=== PATIENT | male | born 1965 | race Hispanic/Latino ===

== ENCOUNTER → 2017-10-05 14:18 | Outpatient (CLI) | payer MEDICAID, SELFPAY ==
[2017-10-05 15:06] LABS: Hematocrit 34.4 % (40-54); Hemoglobin 11.7 g/dl (13.0-16.5); Mean Corpuscular Hgb 29.2 pg (27.0-32.0); Mean Corpuscular Volume 85.8 fL (80-94); Mean Platelet Vol. 10.9 fl (6.2-12.0); Platelet Count 204 K/mm3 (150-450); RBC Distribution Width CV 12.9 % (11.6-14.6); RBC Distribution Width SD 39.5 fl (35.1-43.9); Red Blood Count 4.01 M/mm3 (4.6-6.2); White Blood Count 5.2 K/mm3 (4.4-11.0)
[2017-10-05 15:10] LABS: Scan Indicated on CBC? Y/N NO
[2017-10-05 15:11] LABS: Protein, Urine (Random) 129.6 mg/dL (<11.9); Protein:Creat Ratio 1234 mg/g CRE (0-200)
[2017-10-05 15:33] LABS: Albumin, Serum 2.9 g/dL (3.2-5.0); BUN 30 mg/dL (7-18); BUN/Creat Ratio 30.4 RATIO (10-20); Calcium,Total 8.2 mg/dL (8.5-10.1); Chloride 109 mmol/L (98-107); Creatinine, Serum 0.99 mg/dL (0.70-1.30); EST Glomerular Filtration Rate 86 mL/min (>60); Est Glom Filt Rate - Afr Amer 103 mL/min (>60); Ferritin 119 ng/mL (26-388); Glucose 119 mg/dL (74-106); Iron 63 ug/dL (65-175); Iron Binding Capacity,Total 290 ug/dL (250-450); Phosphorus 3.7 mg/dL (2.5-4.9); Potassium 4.2 mmol/L (3.5-5.1); Sodium Level 145 mmol/L (136-145); Uric Acid 7.1 mg/dL (3.5-7.2)
[2017-10-05 15:54] LABS: PTHIN 58.9 pg/mL (18.4-80.1)
== END ==
PROVIDERS: Visit Provider Internal Medicine Nephrology
DX: I12.9 Hypertensive chronic kidney disease with stage 1 through stage 4 chronic kidney disease, or unspecified chronic kidney disease (principal); N18.3 Chronic kidney disease, stage 3 (moderate); R80.9 Proteinuria, unspecified
CPT/HCPCS: 36415; 80069; 82570; 82728; 83540; 83550; 83970; 84156; 84550; 85027

== ENCOUNTER → 2017-10-20 10:19 | Outpatient (CLI) | payer MEDICAID, SELFPAY ==
[2017-10-20 11:29] LABS: Albumin, Serum 3.2 g/dL (3.2-5.0); BUN 34 mg/dL (7-18); BUN/Creat Ratio 29.6 RATIO (10-20); Calcium,Total 8.6 mg/dL (8.5-10.1); Chloride 107 mmol/L (98-107); Creatinine, Serum 1.15 mg/dL (0.70-1.30); EST Glomerular Filtration Rate 72 mL/min (>60); Est Glom Filt Rate - Afr Amer 87 mL/min (>60); Glucose 111 mg/dL (74-106); Phosphorus 3.4 mg/dL (2.5-4.9); Potassium 4.3 mmol/L (3.5-5.1); Sodium Level 140 mmol/L (136-145)
== END ==
PROVIDERS: Visit Provider Internal Medicine Nephrology
DX: R80.9 Proteinuria, unspecified (principal)
CPT/HCPCS: 36415; 80069

== ENCOUNTER → 2017-12-29 11:36 | Outpatient (CLI) | payer MEDICAID, SELFPAY ==
[2017-12-29 12:59] LABS: ALB/GLOB Ratio 0.7 RATIO (0.9-2.4); AST(SGOT) 21 U/L (15-37); Alanine Aminotransfer ALT/SGPT 43 U/L (16-61); Albumin, Serum 2.9 g/dL (3.2-5.0); Alkaline Phosphatase 136 U/L (45-117); Anion Gap 10 (5-15); BUN 28 mg/dL (7-18); BUN/Creat Ratio 27.2 RATIO (10-20); Calcium,Total 8.5 mg/dL (8.5-10.1); Chloride 106 mmol/L (98-107); Creatinine, Serum 1.03 mg/dL (0.70-1.30); EST Glomerular Filtration Rate 81 mL/min (>60); Est Glom Filt Rate - Afr Amer 98 mL/min (>60); Glucose 213 mg/dL (74-106); Phosphorus 3.3 mg/dL (2.5-4.9); Potassium 4.7 mmol/L (3.5-5.1); Protein, Total 6.9 g/dL (6.4-8.2); Sodium Level 142 mmol/L (136-145); Uric Acid 6.5 mg/dL (3.5-7.2)
[2017-12-29 13:07] LABS: Hemoglobin A1c 8.1 % (4.2-6.3)
[2017-12-29 13:36] LABS: Protein, Urine (Random) 116.3 mg/dL (<11.9); Protein:Creat Ratio 1762 mg/g CRE (0-200)
== END ==
PROVIDERS: Visit Provider Internal Medicine Nephrology
DX: E11.9 Type 2 diabetes mellitus without complications (principal); R80.9 Proteinuria, unspecified
CPT/HCPCS: 36415; 80053; 82043; 82570; 83036; 84100; 84156; 84550

== ENCOUNTER 2019-01-03 13:27 | Emergency (ER) | payer OTHER, SELFPAY ==
[2019-01-03 13:28] VITALS: BP 164/75; PULSE 56; RESP 16; TEMP 36.8; O2SAT 100; BMI 27.5
--- NOTE | 2019-01-03 13:51 | ED.VISSUMM ---
- ER Visit Summary Date of Service: 01/03/19 Chief Complaint: [Blurred vision] History of Present Illness: The patient is a 53 M [presents the emergency department with complaint of blurred vision that started yesterday afternoon around 1 PM. Patient apparently was getting into his pickup truck when everything kind of seem to go black. Patient then had black spots in his vision and everything was blurry. Patient also had a little bit of a headache but his then subsequently gave him some Tylenol which resolved his headache. He denies any eye pain. Denies any eye trauma. Patient now complaining of a black line through the center of his vision of the right eye. Patient has a history of diabetic retinopathy and has had surgery on his left eye in the past and has very decreased vision in the left eye and that he can only see shapes and shadows. Patient's states that his blood sugars been running somewhat elevated in the low 200s.] Physical Examination: [HEENT-PERRLA, EOMI. Cranial nerves II through XII grossly intact. TMs clear. Mucous membranes moist. No adenopathy. Cardiovascular-regular rate and rhythm without murmur or ectopy Lungs-clear to auscultation, chest wall stable without crepitus or subcu emphysema Abdomen-normoactive bowel sounds, soft, nontender, no rebound or rigidity, no peritoneal signs. Extremities-intact ?4, normal range of motion, normal pulses, atraumatic] Test Results: [Fingerstick blood sugar ordered and was 183. Visual acuity pending.] Emergency Department Course and Treatment: [Case was discussed with ophthalmology on-call Dr. Bernal who asked that patient call the office for follow-up appointment. Based on description of symptoms it was felt that patient may have a vitreous humor hemorrhage. It was advised that patient keep his head elevated and avoid aspirin and ibuprofen.] Treatment Plan: [Follow-up with ophthalmology. Patient also advised to follow-up with his retinal specialist.] Disposition: [Discharged home stable condition] Impression: [Blurred vision right eye] This note was generated with [employer] software. It may contain incorrect words, spelling, and punctuation that were not noted in review of the chart prior to signing ED Disposition - Plan for ED Patient: Referrals: [facility],Out of [Primary Care Provider] -
--- NOTE | 2019-01-03 14:00 | ED.DCSUM_ITS ---
- ER Visit Summary Date of Service: 01/03/19 Chief Complaint: [Blurred vision] History of Present Illness: The patient is a 53 M [presents the emergency department with complaint of blurred vision that started yesterday afternoon around 1 PM. Patient apparently was getting into his pickup truck when everyt terry kind of seem to go black. Patient then had black spots in his vision and everything was blurry. Patient also had a little bit of a headache but his then subsequently gave him some Tylenol which resolved his headache. He denies any eye pain. Denies any eye trauma. Patient now complaining of a black line through the center of his vision of the right eye. Patient has a history of diabetic retinopathy and has had surgery on his left eye in the past and has very decreased vision in the left eye and that he can only see shapes and shadows. Patient's states that his blood sugars been running somewhat elevated in the low 200s.] Physical Examination: [HEENT-PERRLA, EOMI. Cranial nerves II through XII grossly intact. TMs clear. Mucous membranes moist. No adenopathy. Cardiovascular-regular rate and rhythm without murmur or ectopy Lungs-clear to auscultation, chest wall stable without crepitus or subcu emphysema Abdomen-normoactive bowel sounds, soft, nontender, no rebound or rigidity, no peritoneal signs. Extremities-intact ?4, normal range of motion, normal pulses, atraumatic] Test Results: [Fingerstick blood sugar ordered and was 183. Visual acuity pending.] Emergency Department Course and Treatment: [Case was discussed with ophthalmology on-call Dr. Bernal who asked that patient call the office for follow-up appointment. Based on description of symptoms it was felt that patient may have a vitreous humor hemorrhage. It was advised that patient keep his head elevated and avoid aspirin and ibuprofen.] Treatment Plan: [Follow-up with ophthalmology. Patient also advised to follow- up with his retinal specialist.] Disposition: [Discharged home stable condition] Impression: [Blurred vision right eye] This note was generated with [employer] software. It may contain incorrect words, spelling, and punctuation that were not noted in review of the chart prior to signing ED Disposition - Plan for ED Patient: Referrals: [facility] Doctor,Out of [Primary Care Provider] -
--- NOTE | 2019-01-03 14:00 | ED.DEP ---
ED Disposition - Plan for ED Patient: Instructions: ED Blurred Vision Referrals: [facility],Out of [Primary Care Provider] - Johnny Bernal MD [STAFF PHYSICIAN] - As soon as possible
[2019-01-03 14:01] LABS: Bedside Glucose 183 mg/dL (70-110)
--- NOTE | 2019-01-03 14:15 | ED.RN ---
DISCHARGE INSTRUCTIONS GIVEN TO AND REVIEWED WITH , DENIES QUESTIONS OR CONCERNS AND VOICES UNDERSTANDING OF DISCHARGE INSTRUCTIONS. PT AMBULATES OUT OF ROOM WITHOUT ISSUE
--- NOTE | 2019-01-03 14:16 | ED.DCSUM_ITS ---
- ER Visit Summary Date of Service: 01/03/19 Chief Complaint: [] History of Present Illness: The patient is a 53 M [] Physical Examination: [] Test Results: [] Emergency Department Course and Treatment: [] Treatment Plan: [] Disposition: [] Impression: [] This note was generated with [employer] software. It may contain incorrect words, spelling, and punctuation that were not noted in review of the chart prior to signing ED Disposition - Plan for ED Patient: Instructions: ED Blurred Vision Referrals: Johnny Bernal MD [STAFF PHYSICIAN] - As soon as possible [facility],Out of [NON-STAFF] -
== END 2019-01-03 14:16 | disposition home or self-care (01) ==
LOC: ED 14:12
PROVIDERS: Emergency Provider Emergency Medicine
DX: H53.8 Other visual disturbances (principal); E11.319 Type 2 diabetes mellitus with unspecified diabetic retinopathy without macular edema; Z79.4 Long term (current) use of insulin; Z79.899 Other long term (current) drug therapy
CPT/HCPCS: 82962; 99283